=== PATIENT | male | born 1965 | race Caucasian/White ===

== ENCOUNTER → 2021-03-25 | Outpatient (CLI) | payer BC, OTHER ==
[~2021-03-25] MED LIST: FLEXERIL PO; NOHOMEMEDICATIONS
== END ==
LOC: ULTRA 13:43
PROVIDERS: ATTEND Family Medicine
DX: I65.23 Occlusion and stenosis of bilateral carotid arteries (principal); R07.89 Other chest pain; H53.9 Unspecified visual disturbance

== ENCOUNTER → 2021-03-25 | Outpatient (CLI) | payer OTHER | LOC: CAT 13:57 | PROVIDERS: ATTEND Internal Medicine Cardiovascular Disease | DX: Z13.6 Encounter for screening for cardiovascular disorders (principal); E78.00 Pure hypercholesterolemia, unspecified; I25.10 Atherosclerotic heart disease of native coronary artery without angina pectoris ==